=== PATIENT | female | born 1945 | race African-American/Black ===

== ENCOUNTER 2017-03-21 03:54 | Emergency (ER) | payer MEDICARE, BC ==
[~2017-03-21] VITALS: Ht 167.6 cm; Wt 79.4 kg
[~2017-03-21 03:54] MED LIST: ASPI-785; ATOR40TA70; BISACODYL; CARV12.545; COMP25R; CYAN100010; DOCU100T PO; DOCUSATE; ESOM20CA; ESTR1TAB12; GABA-290; INSLAN; INSU3INS8; MAGNESIUM; METF25CR; ONDA4FIL4; SENN8.6T71; TRIAMTERENE; [UNRECOGNIZED DRUG - CODE]
[2017-03-21] MEDS ORDERED: ONDANSETRON HCL 4MG/2ML VIAL IV STA (04:24)
[2017-03-21] MEDS ORDERED: MORPHINE SULFATE 4 MG/ML CPJ (NOT FOR IM USE) IV STA (04:24)
[2017-03-21] MEDS ORDERED: SODIUM CHLORIDE 0.9% 1,000 ML IV ONE (04:24)
[2017-03-21 05:04] LABS: BASOPHILS % 1.3 % (0.0-2.0); HEMATOCRIT. 33.4 % (36.0-48.0); HEMOGLOBIN. 10.8 g/dL (12.0-16.0); LYMPHOCYTES % 22.5 % (20.0-50.0); MEAN CORPUSCULAR HEMOGLOBIN 27.9 pg (28.0-32.0); MEAN CORPUSCULAR HGB CONC 32.3 g/dL (31.0-37.0); MEAN CORPUSCULAR VOLUME 86.3 fL (81.0-99.0); MEAN PLATELET VOLUME 8.4 fl (7.4-10.4); MONOCYTES % 13.5 % (2.0-8.0); NEUTROPHILS % 61.7 % (40.0-76.0); PLATELET 238 x1000/uL (130-400); RED BLOOD CELL COUNT 3.87 mill/uL (4.2-5.4); RED CELL DISTRIBUTION WIDTH 19.6 % (11.6-14.6); WHITE BLOOD COUNT 8.1 x1000/uL (4.5-11.0)
[2017-03-21 05:14] LABS: INR 1.1; PARTIAL THROMBOPLASTIN TIME 25.7 sec (24.0-34.0); PROTHROMBIN TIME 11.5 sec
[2017-03-21 05:19] LABS: ALANINE AMINOTRANSFERASE 38 IU/L (13-61); ALBUMIN 3.3 g/dL (3.4-5.0); ANION GAP 15; CARBON DIOXIDE 26 mEq/L (21-32); CHLORIDE 98 mEq/L (98-107); INDEX HEMOLYSI 1 (1-3); INDEX ICTERIC 1 (1-4); INDEX LIPEMIC 1 (1-3); LIPASE 247 IU/L (73-393); UREA NITROGEN BLOOD 7 mg/dL (7-21); eGFR > 60 mL/min (>60)
[2017-03-21] MEDS ORDERED: MORPHINE SULFATE 4 MG/ML CPJ (NOT FOR IM USE) IV ONE (06:30)
[2017-03-21 06:41] LABS: CLARITY URINE CLEAR (CLEAR); COLOR URINE YELLOW (YELLOW); GLUCOSE URINE NEGATIVE (NEGATIVE); KETONES URINE NEGATIVE (NEGATIVE); LEUKOCYTE ESTERASE URINE NEGATIVE (NEGATIVE); NITRITE URINE NEGATIVE (NEGATIVE); OCCULT BLOOD URINE NEGATIVE (NEGATIVE); PROTEIN URINE NEGATIVE (NEGATIVE); SPECIFIC GRAVITY URINE 1.011 (1.005-1.030); UROBILINOGEN URINE 0.2 E.U./dL (0.2-1.0)
[2017-03-21 08:35] VITALS: BP 128/81
== END 2017-03-21 08:43 | disposition home or self-care (01) ==
LOC: ER 04:37
DX: R10.11 Right upper quadrant pain (principal); C25.9 Malignant neoplasm of pancreas, unspecified; K76.89 Other specified diseases of liver; K44.9 Diaphragmatic hernia without obstruction or gangrene; N28.1 Cyst of kidney, acquired; K43.9 Ventral hernia without obstruction or gangrene; I70.0 Atherosclerosis of aorta; M43.16 Spondylolisthesis, lumbar region; Z90.710 Acquired absence of both cervix and uterus; I10 Essential (primary) hypertension; E11.9 Type 2 diabetes mellitus without complications; Z88.0 Allergy status to penicillin; Z79.899 Other long term (current) drug therapy
CPT/HCPCS: 36415; 74177; 80053; 81003; 83690; 85025; 85610; 85730; 86850; 86900; 86901; 96361; 96374; 96375; 96376; 99285; J2270; J2405; J7030

== ENCOUNTER 2017-04-10 11:52 | Emergency (ER) | payer MEDICARE, BC ==
[~2017-04-10] VITALS: Ht 162.6 cm; Wt 91.0 kg
[2017-04-10 14:04] LABS: BASOPHILS % 0.6 % (0.0-2.0); DIFFERENTIAL COMMENT 0; EOSINOPHILS % 0.1 % (0.0-5.0); HEMATOCRIT. 34.6 % (36.0-48.0); HEMOGLOBIN. 11.1 g/dL (12.0-16.0); LYMPHOCYTES % 17.2 % (20.0-50.0); MEAN CORPUSCULAR HEMOGLOBIN 26.2 pg (28.0-32.0); MEAN CORPUSCULAR VOLUME 81.9 fL (81.0-99.0); MEAN PLATELET VOLUME 8.9 fl (7.4-10.4); MONOCYTES % 2.5 % (2.0-8.0); NEUTROPHILS % 79.6 % (40.0-76.0); PLATELET 263 x1000/uL (130-400); RED BLOOD CELL COUNT 4.22 mill/uL (4.2-5.4); RED CELL DISTRIBUTION WIDTH 19.1 % (11.6-14.6); WHITE BLOOD COUNT 6.6 x1000/uL (4.5-11.0)
[2017-04-10 14:12] LABS: INR 1.2; PROTHROMBIN TIME 12.4 sec
[2017-04-10 14:15] LABS: ALBUMIN 3.2 g/dL (3.4-5.0); ANION GAP 15; CALCIUM 8.8 mg/dL (8.5-10.1); CARBON DIOXIDE 27 mEq/L (21-32); CHLORIDE 95 mEq/L (98-107); INDEX HEMOLYSI 1 (1-3); INDEX ICTERIC 1 (1-4); INDEX LIPEMIC 1 (1-3); UREA NITROGEN BLOOD 8 mg/dL (7-21)
[2017-04-10 14:22] LABS: ALANINE AMINOTRANSFERASE 194 IU/L (13-61); TROPONIN I < 0.02 ng/mL (0.00-0.04); eGFR > 60 mL/min (>60)
[2017-04-10 16:31] LABS: CLARITY URINE CLEAR (CLEAR); COLOR URINE YELLOW (YELLOW); GLUCOSE URINE NEGATIVE (NEGATIVE); KETONES URINE NEGATIVE (NEGATIVE); LEUKOCYTE ESTERASE URINE NEGATIVE (NEGATIVE); NITRITE URINE NEGATIVE (NEGATIVE); OCCULT BLOOD URINE NEGATIVE (NEGATIVE); PH URINE 8.5 (4.5-8.0); PROTEIN URINE NEGATIVE (NEGATIVE); SPECIFIC GRAVITY URINE 1.006 (1.005-1.030); UROBILINOGEN URINE 0.2 E.U./dL (0.2-1.0)
[2017-04-10] MEDS: LORAZEPAM 1MG TABLET PO NR ×2 (17:00→19:15)
[2017-04-10] MEDS: POTASSIUM CHLORIDE 10MEQ TABLET SR PO SCH ×2 (18:00→18:13)
[2017-04-10 19:16] VITALS: BP 140/78
== END 2017-04-10 19:21 | disposition home or self-care (01) ==
LOC: ER 13:58
DX: E87.6 Hypokalemia (principal); K74.60 Unspecified cirrhosis of liver; C25.9 Malignant neoplasm of pancreas, unspecified; E11.9 Type 2 diabetes mellitus without complications; Z88.0 Allergy status to penicillin; Z88.8 Allergy status to other drugs, medicaments and biological substances; Z79.899 Other long term (current) drug therapy; Z90.410 Acquired total absence of pancreas; I10 Essential (primary) hypertension
CPT/HCPCS: 36415; 71010; 80053; 81003; 84484; 85025; 85610; 87804; 93005; 99285; J1642

== ENCOUNTER 2017-04-23 01:43 | Emergency (ER) | payer MEDICARE, BC ==
[~2017-04-23] VITALS: Ht 162.6 cm; Wt 90.0 kg
[2017-04-23] MEDS ORDERED: ONDANSETRON HCL 4MG/2ML VIAL IV STA (02:46)
[2017-04-23] MEDS ORDERED: SODIUM CHLORIDE 0.9% 1,000 ML IV ONE (02:46)
[2017-04-23] MEDS ORDERED: MORPHINE SULFATE 4 MG/ML CPJ (NOT FOR IM USE) IV STA (02:46)
[2017-04-23 03:42] LABS: HEMATOCRIT. 29.5 % (36.0-48.0); HEMOGLOBIN. 9.5 g/dL (12.0-16.0); MEAN CORPUSCULAR HEMOGLOBIN 25.5 pg (28.0-32.0); MEAN CORPUSCULAR VOLUME 79.5 fL (81.0-99.0); MEAN PLATELET VOLUME 10.2 fl (7.4-10.4); PLATELET 112 x1000/uL (130-400); RED BLOOD CELL COUNT 3.71 mill/uL (4.2-5.4); RED CELL DISTRIBUTION WIDTH 19.7 % (11.6-14.6)
[2017-04-23 03:56] LABS: CARBON DIOXIDE 29 mEq/L (21-32); CHLORIDE 97 mEq/L (98-107); TROPONIN I < 0.02 ng/mL (0.00-0.04)
[2017-04-23 04:02] LABS: INR 1.1; PROTHROMBIN TIME 11.2 sec
[2017-04-23 05:11] LABS: NUCLEATED RED BLOOD CELLS 2 /100 WBC
[2017-04-23 05:14] LABS: PLATELET ESTIMATE SLIGHTLY DECREASED
[2017-04-23 08:37] VITALS: BP 132/85
== END 2017-04-23 08:47 | disposition home or self-care (01) ==
LOC: ER 01:44
DX: R53.1 Weakness (principal); C25.9 Malignant neoplasm of pancreas, unspecified; G89.3 Neoplasm related pain (acute) (chronic); Z88.8 Allergy status to other drugs, medicaments and biological substances; Z92.21 Personal history of antineoplastic chemotherapy; Z88.0 Allergy status to penicillin
CPT/HCPCS: 36415; 70450; 71010; 80053; 84484; 85025; 85610; 86850; 86900; 86901; 93005; 96374; 96375; 99285; J2270; J2405; J7030

== ENCOUNTER 2017-07-13 14:53 | Inpatient (IN) | payer MEDICARE, BC ==
[~2017-07-13] VITALS: Ht 162.6 cm; Wt 83.0 kg
[~2017-07-13 14:53] MED LIST changes: -ASPI-785; +ASPI-785 PO; -CARV12.545; +CARV12.545 PO; -CYAN100010; +CYAN100010 IM; -GABA-290; +GABA-290 PO; +IOHEXOL-300 100 ML BOTTLE ONE; +SODIUM CHLORIDE 0.9% 10ML VIAL ONE
[2017-07-13] MEDS ORDERED: SODIUM CHLORIDE 0.9% 1,000 ML IV ONE (16:30)
[2017-07-13] MEDS ORDERED: MORPHINE SULFATE 4 MG/ML CPJ (NOT FOR IM USE) IV ONE (16:30)
[2017-07-13] MEDS ORDERED: ONDANSETRON HCL 4MG/2ML VIAL IV ONE (16:30)
[2017-07-13 17:01] LABS: BASOPHILS % 1.2 % (0.0-2.0); EOSINOPHILS % 0.6 % (0.0-5.0); HEMATOCRIT. 29.4 % (36.0-48.0); HEMOGLOBIN. 9.3 g/dL (12.0-16.0); MEAN CORPUSCULAR HEMOGLOBIN 24.4 pg (28.0-32.0); MEAN CORPUSCULAR VOLUME 77.8 fL (81.0-99.0); MEAN PLATELET VOLUME 8.5 fl (7.4-10.4); MONOCYTES % 1.9 % (2.0-8.0); NEUTROPHILS % 48.3 % (40.0-76.0); PLATELET 313 x1000/uL (130-400); RED BLOOD CELL COUNT 3.79 mill/uL (4.2-5.4)
[2017-07-13 17:06] LABS: CHLORIDE 103 mEq/L (98-107)
[2017-07-13 17:09] LABS: INR 1.2; PARTIAL THROMBOPLASTIN TIME 25.9 sec (23.4-31.0); PROTHROMBIN TIME 12.2 sec (9.4-11.6)
[2017-07-13 17:10] LABS: CARBON DIOXIDE 25 mEq/L (21-32)
[2017-07-13 17:21] LABS: PLATELET ESTIMATE NORMAL
[2017-07-13 18:24] LABS: CLARITY URINE CLEAR (CLEAR); COLOR URINE YELLOW (YELLOW); KETONES URINE NEGATIVE (NEGATIVE); LEUKOCYTE ESTERASE URINE TRACE (NEGATIVE); NITRITE URINE NEGATIVE (NEGATIVE); OCCULT BLOOD URINE NEGATIVE (NEGATIVE); PH URINE 7.5 (4.5-8.0); PROTEIN URINE NEGATIVE (NEGATIVE); SPECIFIC GRAVITY URINE 1.008 (1.005-1.030)
[2017-07-13] MEDS: MORPHINE SULFATE 4 MG/ML CPJ (NOT FOR IM USE) IV NR ×2 (21:19→21:29)
[2017-07-14] MEDS ORDERED: MORPHINE SULFATE 4 MG/ML CPJ (NOT FOR IM USE) IV ONE (03:45)
[2017-07-14] MEDS ORDERED: DEXTROSE 50% WATER 50ML SYRINGE IV PRN (09:45)
[2017-07-14] MEDS: HYDROMORPHONE HCL/PF 2MG/ML CPJ IV PRN ×2 (10:40→16:00)
[2017-07-14] MEDS: DIPHENHYDRAMINE 50MG/ML VIAL IV PRN ×2 (12:11→18:19)
[2017-07-14] MEDS: BLOOD SUGAR DIAGNOSTIC STRIP TEST SCH ×3 (12:49→20:38)
[2017-07-14] MEDS: INSULIN LISPRO 100 UNITS/ML SUBCUT SCH ×3 (12:49→21:44)
[2017-07-14] MEDS ORDERED: AMYL1CAP57 PO (19:24)
[2017-07-14] MEDS: GABAPENTIN 300MG CAPSULE PO SCH (22:17)
[2017-07-15 06:42] LABS: EOSINOPHILS % 2.3 % (0.0-5.0); HEMATOCRIT. 28.4 % (36.0-48.0); LYMPHOCYTES % 22.7 % (20.0-50.0); MEAN CORPUSCULAR HEMOGLOBIN 24.6 pg (28.0-32.0); MEAN CORPUSCULAR VOLUME 77.6 fL (81.0-99.0); MEAN PLATELET VOLUME 8.7 fl (7.4-10.4); PLATELET 337 x1000/uL (130-400); RED BLOOD CELL COUNT 3.66 mill/uL (4.2-5.4); RED CELL DISTRIBUTION WIDTH 22.8 % (11.6-14.6)
[2017-07-15] MEDS: GABAPENTIN 300MG CAPSULE PO SCH ×3 (06:51→21:04)
[2017-07-15] MEDS: OMEPRAZOLE 20MG CAPSULE EXTENDED RELEASE PO SCH (07:40)
[2017-07-15] MEDS: METFORMIN HCL 500MG TABLET PO SCH ×2 (07:40→17:36)
[2017-07-15] MEDS: INSULIN LISPRO 100 UNITS/ML SUBCUT SCH ×4 (07:40→20:58)
[2017-07-15] MEDS: BLOOD SUGAR DIAGNOSTIC STRIP TEST SCH ×4 (07:40→20:48)
[2017-07-15 08:16] LABS: AMYLASE 31 IU/L (25-115); CARBON DIOXIDE 26 mEq/L (21-32); CHLORIDE 101 mEq/L (98-107)
[2017-07-15] MEDS: LIPASE/PROTEASE/AMYLASE 4,200/14,200/24,600 UNITS CAP DR PO SCH ×3 (08:27→17:37)
[2017-07-15] MEDS: DOCUSATE SODIUM 100MG CAPSULE PO SCH ×2 (08:27→17:37)
[2017-07-15] MEDS: CARVEDILOL 12.5MG TABLET PO SCH ×2 (08:27→17:37)
[2017-07-15] MEDS: SENNOSIDES 8.6MG TABLET PO SCH (08:27)
[2017-07-15] MEDS ORDERED: CARVEDILOL 12.5MG TABLET PO SCH (09:00)
[2017-07-15] MEDS ORDERED: ESTROGENS,CONJUGATED 0.625MG TABLET PO SCH (09:00)
[2017-07-15] MEDS: INSULIN DETEMIR UD 100 UNITS/ML SYR SUBCUT SCH (10:34)
[2017-07-15] MEDS: HYDROMORPHONE HCL/PF 2MG/ML CPJ IV PRN (11:26)
[2017-07-15 11:58] LABS: HEMATOCRIT. 27.7 % (36.0-48.0); HEMOGLOBIN. 8.6 g/dL (12.0-16.0); MEAN CORPUSCULAR HEMOGLOBIN 24.7 pg (28.0-32.0); MEAN CORPUSCULAR VOLUME 79.3 fL (81.0-99.0); MEAN PLATELET VOLUME 8.8 fl (7.4-10.4); PLATELET 309 x1000/uL (130-400); RED CELL DISTRIBUTION WIDTH 23.2 % (11.6-14.6)
[2017-07-15 12:06] LABS: CHLORIDE 106 mEq/L (98-107)
[2017-07-15 12:07] LABS: INR 1.4; PARTIAL THROMBOPLASTIN TIME 30.2 sec (23.4-31.0); PROTHROMBIN TIME 14.9 sec (9.4-11.6)
[2017-07-15 12:15] LABS: CARBON DIOXIDE 22 mEq/L (21-32)
[2017-07-15 12:33] LABS: PLATELET ESTIMATE NORMAL
[2017-07-15] MEDS: ENOXAPARIN 40MG/0.4ML SYR SUBCUT SCH (13:00)
[2017-07-15 14:33] LABS: CREATINE KINASE 28 IU/L (26-192); CREATINE KINASE MB FRACTION < 0.5 ng/mL (0.5-3.6); TROPONIN I < 0.02 ng/mL (0.00-0.04)
[2017-07-15] MEDS: SODIUM CHLORIDE 0.45% 1,000 ML IV SCH (14:59)
[2017-07-15] MEDS: TRAMADOL 50MG TABLET PO PRN (19:47)
[2017-07-15] MEDS: ATORVASTATIN CALCIUM 40MG TABLET PO SCH (20:55)
[2017-07-15] MEDS ORDERED: TRAZODONE HCL 50MG TABLET PO SCH (21:00)
[2017-07-15 21:52] LABS: CREATINE KINASE 27 IU/L (26-192); CREATINE KINASE MB FRACTION < 0.5 ng/mL (0.5-3.6); TROPONIN I < 0.02 ng/mL (0.00-0.04)
[2017-07-16 06:11] LABS: CREATINE KINASE 26 IU/L (26-192); CREATINE KINASE MB FRACTION < 0.5 ng/mL (0.5-3.6); TROPONIN I < 0.02 ng/mL (0.00-0.04)
[2017-07-16] MEDS: LIPASE/PROTEASE/AMYLASE 4,200/14,200/24,600 UNITS CAP DR PO SCH ×3 (06:27→16:41)
[2017-07-16] MEDS: OMEPRAZOLE 20MG CAPSULE EXTENDED RELEASE PO SCH (06:28)
[2017-07-16] MEDS: GABAPENTIN 300MG CAPSULE PO SCH ×3 (06:28→21:06)
[2017-07-16] MEDS: INSULIN LISPRO 100 UNITS/ML SUBCUT SCH ×4 (06:33→21:09)
[2017-07-16] MEDS: BLOOD SUGAR DIAGNOSTIC STRIP TEST SCH ×4 (06:34→20:30)
[2017-07-16] MEDS ORDERED: ACETAMINOPHEN 325MG TABLET PO PRN (07:45)
[2017-07-16] MEDS: DOCUSATE SODIUM 100MG CAPSULE PO SCH ×2 (08:13→16:41)
[2017-07-16] MEDS: METFORMIN HCL 500MG TABLET PO SCH ×2 (08:13→16:41)
[2017-07-16] MEDS: CARVEDILOL 12.5MG TABLET PO SCH ×2 (08:14→16:41)
[2017-07-16] MEDS: SENNOSIDES 8.6MG TABLET PO SCH (08:14)
[2017-07-16] MEDS: SODIUM CHLORIDE 0.45% 1,000 ML IV SCH (08:14)
[2017-07-16] MEDS: ENOXAPARIN 40MG/0.4ML SYR SUBCUT SCH (08:14)
[2017-07-16] MEDS: INSULIN DETEMIR UD 100 UNITS/ML SYR SUBCUT SCH (09:16)
[2017-07-16 09:18] LABS: CARBON DIOXIDE 23 mEq/L (21-32); CHLORIDE 104 mEq/L (98-107)
[2017-07-16 11:26] LABS: HEMATOCRIT. 27.4 % (36.0-48.0); HEMOGLOBIN. 8.5 g/dL (12.0-16.0); MEAN CORPUSCULAR HEMOGLOBIN 24.8 pg (28.0-32.0); MEAN CORPUSCULAR VOLUME 79.7 fL (81.0-99.0); MEAN PLATELET VOLUME 8.8 fl (7.4-10.4); PLATELET 331 x1000/uL (130-400); RED BLOOD CELL COUNT 3.44 mill/uL (4.2-5.4); RED CELL DISTRIBUTION WIDTH 22.5 % (11.6-14.6)
[2017-07-16 11:58] LABS: PLATELET ESTIMATE NORMAL
[2017-07-16] MEDS: ONDANSETRON HCL 4MG/2ML VIAL IV PRN (13:50)
[2017-07-16] MEDS: SODIUM CHLORIDE 45ML SPRAY NS PRN ×2 (17:27→23:08)
[2017-07-16] MEDS: ATORVASTATIN CALCIUM 40MG TABLET PO SCH (21:06)
[2017-07-16] MEDS ORDERED: TRAZODONE HCL 50MG TABLET PO SCH ×3 (21:37→23:00)
[2017-07-16] MEDS: TRAMADOL 50MG TABLET PO PRN (21:41)
[2017-07-17] MEDS: HYDROMORPHONE HCL/PF 2MG/ML CPJ IV PRN (00:19)
[2017-07-17] MEDS: SODIUM CHLORIDE 0.45% 1,000 ML IV SCH (03:42)
[2017-07-17] MEDS: DIPHENHYDRAMINE 50MG/ML VIAL IV PRN (03:47)
[2017-07-17] MEDS: SODIUM CHLORIDE 45ML SPRAY NS PRN ×2 (03:53→14:44)
[2017-07-17] MEDS: GABAPENTIN 300MG CAPSULE PO SCH ×2 (06:00→14:42)
[2017-07-17] MEDS: LIPASE/PROTEASE/AMYLASE 4,200/14,200/24,600 UNITS CAP DR PO SCH ×3 (06:38→17:15)
[2017-07-17] MEDS: BLOOD SUGAR DIAGNOSTIC STRIP TEST SCH ×3 (06:38→17:14)
[2017-07-17] MEDS: METFORMIN HCL 500MG TABLET PO SCH ×2 (06:57→17:15)
[2017-07-17] MEDS: INSULIN LISPRO 100 UNITS/ML SUBCUT SCH ×3 (07:02→18:04)
[2017-07-17 07:19] LABS: HEMATOCRIT. 27.1 % (36.0-48.0); HEMOGLOBIN. 8.5 g/dL (12.0-16.0); MEAN CORPUSCULAR VOLUME 79.2 fL (81.0-99.0); MEAN PLATELET VOLUME 8.4 fl (7.4-10.4); PLATELET 323 x1000/uL (130-400); RED BLOOD CELL COUNT 3.41 mill/uL (4.2-5.4)
[2017-07-17 07:42] LABS: CARBON DIOXIDE 26 mEq/L (21-32); CHLORIDE 103 mEq/L (98-107)
[2017-07-17] MEDS: CARVEDILOL 12.5MG TABLET PO SCH ×2 (09:00→17:15)
[2017-07-17] MEDS ORDERED: ENOXAPARIN 30MG/0.3ML SYR SUBCUT SCH (09:00)
[2017-07-17] MEDS: FAMOTIDINE 20MG TABLET PO SCH ×2 (09:00→17:15)
[2017-07-17] MEDS: DOCUSATE SODIUM 100MG CAPSULE PO SCH ×2 (09:00→17:15)
[2017-07-17] MEDS: ONDANSETRON HCL 4MG/2ML VIAL IV PRN (12:15)
[2017-07-17] MEDS: INSULIN DETEMIR UD 100 UNITS/ML SYR SUBCUT SCH (12:16)
[2017-07-17] MEDS: SENNOSIDES 8.6MG TABLET PO SCH (12:26)
[2017-07-17 13:18] LABS: PLATELET ESTIMATE NORMAL
[2017-07-17 19:22] VITALS: BP 127/53
[2017-07-17] MEDS ORDERED: TRAZODONE HCL 50MG TABLET PO SCH (23:00)
[2018-07-30] MEDS ORDERED: CYANOCOBALAMIN 1000MCG/ML VIAL IM SCH (09:00)
== END 2017-07-17 19:55 | disposition home or self-care (01) | DRG 436 ==
LOC: ER 16:11 → 8WST 22:51 → ENRESERV 07-14 06:52
PROVIDERS: ADMIT Internal Medicine; ATTEND Internal Medicine
DX: C78.7 Secondary malignant neoplasm of liver and intrahepatic bile duct (principal); E44.0 Moderate protein-calorie malnutrition; C25.9 Malignant neoplasm of pancreas, unspecified; C77.9 Secondary and unspecified malignant neoplasm of lymph node, unspecified; E11.42 Type 2 diabetes mellitus with diabetic polyneuropathy; D64.9 Anemia, unspecified; I10 Essential (primary) hypertension; E78.5 Hyperlipidemia, unspecified; G89.3 Neoplasm related pain (acute) (chronic); G89.29 Other chronic pain; G43.909 Migraine, unspecified, not intractable, without status migrainosus; K80.50 Calculus of bile duct without cholangitis or cholecystitis without obstruction; M19.90 Unspecified osteoarthritis, unspecified site; Z90.710 Acquired absence of both cervix and uterus; Z79.899 Other long term (current) drug therapy; Z92.21 Personal history of antineoplastic chemotherapy; Z90.81 Acquired absence of spleen
CPT/HCPCS: 36415; 70450; 71010; 74177; 74181; 80048; 80053; 80076; 81001; 82150; 82550; 82553; 82962; 83690; 84484; 85025; 85610; 85651; 85730; 93005; 93306; 96361; 96374; 96375; 96376; 99285; A4216; J1170; J1200; J1650; J1815; J2270; J2405; J7030; Q9967

== ENCOUNTER 2017-07-27 16:58 | Inpatient (IN) | payer MEDICARE, BC ==
[~2017-07-27] VITALS: Ht 162.6 cm; Wt 80.7 kg
[~2017-07-27 16:58] MED LIST changes: +AMYL1CAP57 PO; -IOHEXOL-300 100 ML BOTTLE ONE; -SODIUM CHLORIDE 0.9% 10ML VIAL ONE
[2017-07-27] MEDS ORDERED: SODIUM CHLORIDE 0.9% 1,000 ML IV ONE (17:52)
[2017-07-27] MEDS ORDERED: MORPHINE SULFATE 4 MG/ML CPJ (NOT FOR IM USE) IV STA (17:52)
[2017-07-27] MEDS ORDERED: ONDANSETRON HCL 4MG/2ML VIAL IV STA (17:52)
[2017-07-27 18:20] LABS: HEMATOCRIT. 28.8 % (36.0-48.0); HEMOGLOBIN. 9.3 g/dL (12.0-16.0); MEAN CORPUSCULAR HEMOGLOBIN 25.1 pg (28.0-32.0); MEAN PLATELET VOLUME 8.9 fl (7.4-10.4); PLATELET 238 x1000/uL (130-400); RED BLOOD CELL COUNT 3.69 mill/uL (4.2-5.4); RED CELL DISTRIBUTION WIDTH 22.6 % (11.6-14.6)
[2017-07-27 18:27] LABS: INR 1.2; PARTIAL THROMBOPLASTIN TIME 30.3 sec (23.4-31.0); PROTHROMBIN TIME 12.3 sec (9.4-11.6)
[2017-07-27 18:30] LABS: CARBON DIOXIDE 24 mEq/L (21-32); CHLORIDE 105 mEq/L (98-107)
[2017-07-27 18:33] LABS: TROPONIN I < 0.02 ng/mL (0.00-0.04)
[2017-07-27 18:41] LABS: PLATELET ESTIMATE NORMAL
[2017-07-27] MEDS ORDERED: HYDROMORPHONE HCL/PF 2MG/ML CPJ IV ONE (19:45)
[2017-07-27 20:32] LABS: CLARITY URINE CLEAR (CLEAR); COLOR URINE DARK YELLOW (YELLOW); GLUCOSE URINE NEGATIVE (NEGATIVE); KETONES URINE NEGATIVE (NEGATIVE); LEUKOCYTE ESTERASE URINE TRACE (NEGATIVE); NITRITE URINE NEGATIVE (NEGATIVE); OCCULT BLOOD URINE NEGATIVE (NEGATIVE); PH URINE 7.5 (4.5-8.0); PROTEIN URINE NEGATIVE (NEGATIVE); SPECIFIC GRAVITY URINE 1.007 (1.005-1.030)
[2017-07-27 23:00] VITALS: BP 139/73
[2017-07-28] MEDS ORDERED: CHOL100044 PO (00:14)
[2017-07-28] MEDS ORDERED: METF-517 PO (00:14)
[2017-07-28] MEDS ORDERED: FOLI-43 PO (00:14)
[2017-07-28] MEDS ORDERED: TRAZ-132 PO (00:14)
[2017-07-28] MEDS ORDERED: DEXTROSE 50% WATER 50ML SYRINGE IV PRN (02:00)
[2017-07-28] MEDS: HYDROMORPHONE HCL/PF 2MG/ML CPJ IV PRN ×4 (02:50→21:33)
[2017-07-28] MEDS: DIPHENHYDRAMINE 50MG/ML VIAL IV PRN ×2 (02:50→19:50)
[2017-07-28 04:00] VITALS: BP 148/82
[2017-07-28] MEDS: BLOOD SUGAR DIAGNOSTIC STRIP TEST SCH ×4 (06:36→21:32)
[2017-07-28 07:44] VITALS: BP 149/86
[2017-07-28] MEDS: INSULIN LISPRO 100 UNITS/ML SUBCUT SCH ×4 (07:50→21:31)
[2017-07-28] MEDS: DOCUSATE SODIUM 100MG CAPSULE PO SCH ×2 (08:58→18:13)
[2017-07-28] MEDS: GABAPENTIN 300MG CAPSULE PO SCH (08:59)
[2017-07-28] MEDS: METFORMIN HCL 500MG SR TABLET 24HR PO SCH ×2 (08:59→18:13)
[2017-07-28] MEDS: FOLIC ACID 1MG TABLET PO SCH (08:59)
[2017-07-28] MEDS ORDERED: CYANOCOBALAMIN 1000MCG/ML VIAL IM SCH (09:00)
[2017-07-28] MEDS: CHOLECALCIFEROL (D3) 1000 UNIT TABLET PO SCH (09:00)
[2017-07-28] MEDS ORDERED: MEDICATION NOT ON FORMULARY EA (Docusate Sodium 100 MG) PO SCH (09:00)
[2017-07-28] MEDS ORDERED: MEDICATION NOT ON FORMULARY EA (Gabapentin 600 MG) PO SCH (09:00)
[2017-07-28] MEDS: CARVEDILOL 12.5MG TABLET PO SCH (09:00)
[2017-07-28] MEDS: ONDANSETRON HCL 4MG/2ML VIAL IV PRN ×2 (09:40→18:17)
[2017-07-28 10:15] LABS: HEMOGLOBIN 9.6 g/dL (12.0-16.0); MEAN CORPUSCULAR HEMOGLOBIN 25.3 pg (28.0-32.0); MEAN CORPUSCULAR VOLUME 78.5 fL (81.0-99.0); PLATELET 247 x1000/uL (130-400); RED BLOOD CELL COUNT 3.82 mill/uL (4.2-5.4); RED CELL DISTRIBUTION WIDTH 22.6 % (11.6-14.6)
[2017-07-28 10:22] LABS: INR 1.2; PARTIAL THROMBOPLASTIN TIME 26.8 sec (23.4-31.0); PROTHROMBIN TIME 12.5 sec (9.4-11.6)
[2017-07-28 10:32] LABS: CARBON DIOXIDE 24 mEq/L (21-32); CHLORIDE 102 mEq/L (98-107)
[2017-07-28 12:00] VITALS: BP 114/57
[2017-07-28 16:00] VITALS: BP 120/58
[2017-07-28 20:00] VITALS: BP 150/74
[2017-07-28] MEDS: TRAZODONE HCL 100MG TABLET PO SCH (21:31)
[2017-07-29] VITALS: BP 136/77
[2017-07-29] MEDS: HYDROMORPHONE HCL/PF 2MG/ML CPJ IV PRN ×4 (00:43→15:25)
[2017-07-29 04:00] VITALS: BP 123/66
[2017-07-29] MEDS: BLOOD SUGAR DIAGNOSTIC STRIP TEST SCH ×4 (07:20→20:49)
[2017-07-29] MEDS: METFORMIN HCL 500MG SR TABLET 24HR PO SCH ×2 (07:50→17:14)
[2017-07-29] MEDS: INSULIN LISPRO 100 UNITS/ML SUBCUT SCH ×4 (07:50→20:50)
[2017-07-29 08:00] VITALS: BP 122/64
[2017-07-29] MEDS: CARVEDILOL 12.5MG TABLET PO SCH (09:00)
[2017-07-29] MEDS: FOLIC ACID 1MG TABLET PO SCH (09:00)
[2017-07-29] MEDS: GABAPENTIN 300MG CAPSULE PO SCH (09:00)
[2017-07-29] MEDS: DOCUSATE SODIUM 100MG CAPSULE PO SCH ×2 (09:00→17:14)
[2017-07-29] MEDS: CHOLECALCIFEROL (D3) 1000 UNIT TABLET PO SCH (09:00)
[2017-07-29] MEDS: DIPHENHYDRAMINE 50MG/ML VIAL IV PRN (11:10)
[2017-07-29 12:00] VITALS: BP 167/77
[2017-07-29 16:00] VITALS: BP 140/74
[2017-07-29] MEDS: ONDANSETRON HCL 4MG/2ML VIAL IV PRN (18:08)
[2017-07-29] MEDS: MAGNESIUM/ALUMINUM HYDROXIDE/SIMETHICONE 30ML UDC PO PRN (18:30)
[2017-07-29] MEDS: OMEPRAZOLE 20MG CAPSULE EXTENDED RELEASE PO SCH (18:30)
[2017-07-29 20:45] VITALS: BP 140/90
[2017-07-29] MEDS: TRAZODONE HCL 100MG TABLET PO SCH (20:49)
[2017-07-30] MEDS: HYDROMORPHONE HCL/PF 2MG/ML CPJ IV PRN ×4 (00:02→21:24)
[2017-07-30 00:23] VITALS: BP 121/66
[2017-07-30 04:34] VITALS: BP 129/74
[2017-07-30] MEDS: BLOOD SUGAR DIAGNOSTIC STRIP TEST SCH ×4 (06:31→20:31)
[2017-07-30 08:00] VITALS: BP 105/63
[2017-07-30] MEDS: CHOLECALCIFEROL (D3) 1000 UNIT TABLET PO SCH (08:15)
[2017-07-30] MEDS: GABAPENTIN 300MG CAPSULE PO SCH (08:15)
[2017-07-30] MEDS: OMEPRAZOLE 20MG CAPSULE EXTENDED RELEASE PO SCH (08:15)
[2017-07-30] MEDS: METFORMIN HCL 500MG SR TABLET 24HR PO SCH ×2 (08:15→17:21)
[2017-07-30] MEDS: DOCUSATE SODIUM 100MG CAPSULE PO SCH ×2 (08:15→17:21)
[2017-07-30] MEDS: INSULIN LISPRO 100 UNITS/ML SUBCUT SCH ×4 (08:17→20:31)
[2017-07-30] MEDS: FOLIC ACID 1MG TABLET PO SCH (08:18)
[2017-07-30] MEDS: CARVEDILOL 12.5MG TABLET PO SCH (08:19)
[2017-07-30 09:09] LABS: HEMATOCRIT. 29.3 % (36.0-48.0); HEMOGLOBIN. 9.3 g/dL (12.0-16.0); MEAN CORPUSCULAR HEMOGLOBIN 25.1 pg (28.0-32.0); MEAN CORPUSCULAR VOLUME 78.9 fL (81.0-99.0); PLATELET 275 x1000/uL (130-400); RED BLOOD CELL COUNT 3.71 mill/uL (4.2-5.4); RED CELL DISTRIBUTION WIDTH 22.5 % (11.6-14.6)
[2017-07-30 09:20] LABS: AMYLASE 27 IU/L (25-115); CARBON DIOXIDE 25 mEq/L (21-32); CHLORIDE 103 mEq/L (98-107); TOTAL IRON BINDING CAPACITY 214 ug/dL (250-450)
[2017-07-30 09:57] LABS: INR 1.2; PARTIAL THROMBOPLASTIN TIME 27.3 sec (23.4-31.0); PROTHROMBIN TIME 12.1 sec (9.4-11.6)
[2017-07-30] MEDS ORDERED: SODIUM CHL 0.9% + KCL 20MEQ/L 1,000 ML IV SCH (10:00)
[2017-07-30] MEDS: LEVOFLOXACIN 500MG PREMIX 100 ML IV SCH (11:14)
[2017-07-30 11:22] LABS: FOLIC ACID (FOLATE) SERUM > 20.00 ng/mL (>5.38); VITAMIN B12 SERUM > 2000 pg/mL (211-911)
[2017-07-30 12:08] VITALS: BP 125/64
[2017-07-30] MEDS: ONDANSETRON HCL 4MG/2ML VIAL IV PRN ×2 (13:04→19:32)
[2017-07-30 13:49] LABS: FERRITIN 282 ng/mL (10-291)
[2017-07-30 13:50] LABS: CARCINO EMBRYONIC ANTIGEN 8.8 ng/ml
[2017-07-30] MEDS: MAGNESIUM/ALUMINUM HYDROXIDE/SIMETHICONE 30ML UDC PO PRN (13:58)
[2017-07-30 16:01] VITALS: BP 111/68
[2017-07-30 20:14] VITALS: BP 117/57
[2017-07-30] MEDS: TRAZODONE HCL 100MG TABLET PO SCH (20:31)
[2017-07-30 23:33] LABS: NUCLEATED RED BLOOD CELLS 2 /100 WBC
[2017-07-30 23:37] LABS: PLATELET ESTIMATE NORMAL
[2017-07-31] VITALS: BP 115/49
[2017-07-31 04:00] VITALS: BP 133/70
[2017-07-31] MEDS: ONDANSETRON HCL 4MG/2ML VIAL IV PRN ×2 (05:44→13:43)
[2017-07-31 06:31] LABS: INR 1.1; PARTIAL THROMBOPLASTIN TIME 22.7 sec (23.4-31.0); PROTHROMBIN TIME 11.8 sec (9.4-11.6)
[2017-07-31] MEDS: BLOOD SUGAR DIAGNOSTIC STRIP TEST SCH ×4 (06:40→21:46)
[2017-07-31 07:23] LABS: CARBON DIOXIDE 24 mEq/L (21-32); CHLORIDE 103 mEq/L (98-107)
[2017-07-31 07:54] VITALS: BP 145/66
[2017-07-31] MEDS: INSULIN LISPRO 100 UNITS/ML SUBCUT SCH ×4 (08:27→21:50)
[2017-07-31] MEDS: FOLIC ACID 1MG TABLET PO SCH (08:29)
[2017-07-31] MEDS: METFORMIN HCL 500MG SR TABLET 24HR PO SCH ×2 (08:29→18:07)
[2017-07-31] MEDS: OMEPRAZOLE 20MG CAPSULE EXTENDED RELEASE PO SCH (08:29)
[2017-07-31] MEDS: CARVEDILOL 12.5MG TABLET PO SCH (08:29)
[2017-07-31] MEDS: HYDROMORPHONE HCL/PF 2MG/ML CPJ IV PRN ×3 (08:29→20:30)
[2017-07-31] MEDS: DOCUSATE SODIUM 100MG CAPSULE PO SCH ×2 (08:29→18:07)
[2017-07-31] MEDS: GABAPENTIN 300MG CAPSULE PO SCH (08:29)
[2017-07-31] MEDS: CHOLECALCIFEROL (D3) 1000 UNIT TABLET PO SCH (08:29)
[2017-07-31 09:07] LABS: BASOPHILS % 0.8 % (0.0-2.0); EOSINOPHILS % 0.5 % (0.0-5.0); HEMATOCRIT. 29.9 % (36.0-48.0); HEMOGLOBIN. 9.4 g/dL (12.0-16.0); LYMPHOCYTES % 48.3 % (20.0-50.0); MEAN CORPUSCULAR HEMOGLOBIN 25.5 pg (28.0-32.0); MEAN CORPUSCULAR VOLUME 81.2 fL (81.0-99.0); MONOCYTES % 8.1 % (2.0-8.0); NEUTROPHILS % 42.3 % (40.0-76.0); RED BLOOD CELL COUNT 3.68 mill/uL (4.2-5.4); RED CELL DISTRIBUTION WIDTH 22.5 % (11.6-14.6)
[2017-07-31] MEDS: MAGNESIUM/ALUMINUM HYDROXIDE/SIMETHICONE 30ML UDC PO PRN (10:36)
[2017-07-31] MEDS: LEVOFLOXACIN 500MG PREMIX 100 ML IV SCH (10:36)
[2017-07-31] MEDS: SODIUM CHL 0.9% + KCL 20MEQ/L 1,000 ML IV SCH ×2 (10:36)
[2017-07-31 12:00] VITALS: BP 122/55
[2017-07-31 13:03] LABS: PLATELET 248 x1000/uL (130-400)
[2017-07-31 16:00] VITALS: BP 140/66
[2017-07-31 20:00] VITALS: BP 114/75
[2017-07-31] MEDS: TRAZODONE HCL 100MG TABLET PO SCH (21:05)
[2017-08-01] VITALS (7 sets, daily range): BP systolic 110–168; BP diastolic 59–85
[2017-08-01 06:42] LABS: INR 1.1; PROTHROMBIN TIME 11.7 sec (9.4-11.6)
[2017-08-01] MEDS: HYDROMORPHONE HCL/PF 2MG/ML CPJ IV PRN ×4 (06:42→20:01)
[2017-08-01] MEDS: BLOOD SUGAR DIAGNOSTIC STRIP TEST SCH ×4 (06:54→21:50)
[2017-08-01] MEDS: ONDANSETRON HCL 4MG/2ML VIAL IV PRN ×3 (06:57→20:14)
[2017-08-01] MEDS: METFORMIN HCL 500MG SR TABLET 24HR PO SCH ×2 (07:50→18:19)
[2017-08-01] MEDS: INSULIN LISPRO 100 UNITS/ML SUBCUT SCH ×4 (07:50→22:33)
[2017-08-01] MEDS: GABAPENTIN 300MG CAPSULE PO SCH (09:00)
[2017-08-01] MEDS: CARVEDILOL 12.5MG TABLET PO SCH (09:00)
[2017-08-01] MEDS: CHOLECALCIFEROL (D3) 1000 UNIT TABLET PO SCH (09:00)
[2017-08-01] MEDS: FOLIC ACID 1MG TABLET PO SCH (09:00)
[2017-08-01] MEDS: DOCUSATE SODIUM 100MG CAPSULE PO SCH ×2 (09:00→18:19)
[2017-08-01] MEDS: OMEPRAZOLE 20MG CAPSULE EXTENDED RELEASE PO SCH (09:00)
[2017-08-01] MEDS ORDERED: SODIUM CHLORIDE 0.9% 1,000 ML IV SCH (12:15)
[2017-08-01] MEDS: LEVOFLOXACIN 500MG PREMIX 100 ML IV SCH (12:18)
[2017-08-01] MEDS ORDERED: SODIUM CHL 0.9% + KCL 20MEQ/L 1,000 ML IV SCH ×3 (14:00)
[2017-08-01] MEDS: TRAZODONE HCL 100MG TABLET PO SCH (21:26)
[2017-08-02] VITALS: BP 150/81
[2017-08-02] MEDS ORDERED: SODIUM CHLORIDE 0.9% 1,000 ML IV SCH
[2017-08-02 04:00] VITALS: BP 153/66
[2017-08-02 06:23] LABS: HEMATOCRIT. 30.5 % (36.0-48.0); HEMOGLOBIN. 9.6 g/dL (12.0-16.0); MEAN CORPUSCULAR HEMOGLOBIN 25.4 pg (28.0-32.0); MEAN CORPUSCULAR VOLUME 80.6 fL (81.0-99.0); MEAN PLATELET VOLUME 9.1 fl (7.4-10.4); PLATELET 236 x1000/uL (130-400); RED BLOOD CELL COUNT 3.78 mill/uL (4.2-5.4)
[2017-08-02] MEDS: BLOOD SUGAR DIAGNOSTIC STRIP TEST SCH ×4 (06:35→21:30)
[2017-08-02] MEDS: SODIUM CHL 0.9% + KCL 20MEQ/L 1,000 ML IV SCH ×2 (06:51→13:20)
[2017-08-02 07:04] LABS: CHLORIDE 103 mEq/L (98-107)
[2017-08-02 07:27] LABS: CARBON DIOXIDE 24 mEq/L (21-32)
[2017-08-02] MEDS ORDERED: HYDROMORPHONE HCL/PF 2MG/ML CPJ IV PRN (07:45)
[2017-08-02] MEDS: INSULIN LISPRO 100 UNITS/ML SUBCUT SCH ×5 (07:50→21:30)
[2017-08-02] MEDS: METFORMIN HCL 500MG SR TABLET 24HR PO SCH ×2 (07:50→17:48)
[2017-08-02 08:00] VITALS: BP 172/91
[2017-08-02] MEDS: GABAPENTIN 300MG CAPSULE PO SCH (09:00)
[2017-08-02] MEDS: CHOLECALCIFEROL (D3) 1000 UNIT TABLET PO SCH (09:00)
[2017-08-02] MEDS: FOLIC ACID 1MG TABLET PO SCH (09:00)
[2017-08-02] MEDS: CARVEDILOL 12.5MG TABLET PO SCH ×2 (09:00→10:23)
[2017-08-02] MEDS: OMEPRAZOLE 20MG CAPSULE EXTENDED RELEASE PO SCH (09:00)
[2017-08-02] MEDS: DOCUSATE SODIUM 100MG CAPSULE PO SCH ×2 (09:00→17:00)
[2017-08-02] MEDS ORDERED: DIPHENHYDRAMINE 50MG/ML VIAL IV NR (10:00)
[2017-08-02] MEDS: ONDANSETRON HCL 4MG/2ML VIAL IV PRN ×2 (10:22→20:22)
[2017-08-02] MEDS: LEVOFLOXACIN 500MG PREMIX 100 ML IV SCH (11:16)
[2017-08-02 12:00] VITALS: BP 155/77
[2017-08-02] MEDS: MORPHINE SULFATE 2 MG/ML CPJ (NOT FOR IM USE) IV PRN ×2 (12:28→20:23)
[2017-08-02 13:22] LABS: NUCLEATED RED BLOOD CELLS 3 /100 WBC
[2017-08-02 13:25] LABS: PLATELET ESTIMATE NORMAL
[2017-08-02 16:00] VITALS: BP 124/58
[2017-08-02 20:00] VITALS: BP 167/83
[2017-08-02] MEDS: DIPHENHYDRAMINE 25MG CAPSULE PO PRN (20:26)
[2017-08-02] MEDS: TRAZODONE HCL 100MG TABLET PO SCH (20:26)
[2017-08-03] VITALS: BP 107/56
[2017-08-03] MEDS: SODIUM CHL 0.9% + KCL 20MEQ/L 1,000 ML IV SCH (01:44)
[2017-08-03 04:00] VITALS: BP 106/64
[2017-08-03] MEDS: BLOOD SUGAR DIAGNOSTIC STRIP TEST SCH ×2 (06:38→12:02)
[2017-08-03 08:00] VITALS: BP 148/76
[2017-08-03] MEDS: ONDANSETRON HCL 4MG/2ML VIAL IV PRN (08:14)
[2017-08-03] MEDS: CHOLECALCIFEROL (D3) 1000 UNIT TABLET PO SCH (08:16)
[2017-08-03] MEDS: OMEPRAZOLE 20MG CAPSULE EXTENDED RELEASE PO SCH (08:16)
[2017-08-03] MEDS: METFORMIN HCL 500MG SR TABLET 24HR PO SCH (08:17)
[2017-08-03] MEDS: GABAPENTIN 300MG CAPSULE PO SCH (08:17)
[2017-08-03] MEDS: CARVEDILOL 12.5MG TABLET PO SCH (08:17)
[2017-08-03] MEDS: FOLIC ACID 1MG TABLET PO SCH (08:17)
[2017-08-03] MEDS: DOCUSATE SODIUM 100MG CAPSULE PO SCH (08:17)
[2017-08-03] MEDS: INSULIN LISPRO 100 UNITS/ML SUBCUT SCH ×2 (08:21→12:25)
[2017-08-03] MEDS: DIPHENHYDRAMINE 25MG CAPSULE PO PRN (08:59)
[2017-08-03] MEDS ORDERED: MORPHINE SULFATE 2 MG/ML CPJ (NOT FOR IM USE) IV PRN (10:00)
[2017-08-03] MEDS: LEVOFLOXACIN 500MG PREMIX 100 ML IV SCH (11:10)
[2017-08-03 12:00] VITALS: BP 135/71
[2017-08-03 13:09] LABS: ALPHA FETOPROTEIN TUMOR MARKER 5.5 ng/mL (0.0-8.3)
[2017-08-11] MEDS ORDERED: CYANOCOBALAMIN IM SCH (09:00)
== END 2017-08-03 16:50 | disposition short-term general hospital (02) | DRG 435 ==
LOC: ER 17:47 → 6WST 20:53 → ENRESERV 21:11
PROVIDERS: ADMIT Internal Medicine; ATTEND Internal Medicine
DX: C78.7 Secondary malignant neoplasm of liver and intrahepatic bile duct (principal); K83.1 Obstruction of bile duct; C25.9 Malignant neoplasm of pancreas, unspecified; E11.42 Type 2 diabetes mellitus with diabetic polyneuropathy; D64.9 Anemia, unspecified; N28.1 Cyst of kidney, acquired; E78.5 Hyperlipidemia, unspecified; I10 Essential (primary) hypertension; G43.909 Migraine, unspecified, not intractable, without status migrainosus; E78.00 Pure hypercholesterolemia, unspecified; Z79.4 Long term (current) use of insulin; Z82.49 Family history of ischemic heart disease and other diseases of the circulatory system; Z83.3 Family history of diabetes mellitus; Z90.411 Acquired partial absence of pancreas; Z90.81 Acquired absence of spleen; Z88.0 Allergy status to penicillin; Z88.8 Allergy status to other drugs, medicaments and biological substances
CPT/HCPCS: 36415; 71010; 74176; 74181; 80048; 80053; 80076; 81001; 82105; 82150; 82248; 82378; 82607; 82728; 82746; 82962; 83540; 83550; 83690; 84466; 84484; 85007; 85025; 85027; 85044; 85610; 85730; 86301; 93005; 96361; 96374; 96375; 99285; J1170; J1200; J1815; J1956; J2270; J2405; J3420; J3480; J7030; Q0163

== ENCOUNTER 2017-10-27 12:49 | Emergency (ER) | payer MEDICARE, BC ==
[~2017-10-27] VITALS: Ht 162.6 cm; Wt 72.0 kg
[~2017-10-27 12:49] MED LIST changes: +CHOL100044 PO; +FOLI-43 PO; +METF-517 PO; +TRAZ-132 PO
[2017-10-27] MEDS ORDERED: HYDROCODONE/ACETAMINOPHEN 10/325MG TABLET PO ONE (14:30)
[2017-10-27 14:36] LABS: HEMATOCRIT. 31.4 % (36.0-48.0); HEMOGLOBIN. 9.8 g/dL (12.0-16.0); MEAN CORPUSCULAR HEMOGLOBIN 25.8 pg (28.0-32.0); MEAN CORPUSCULAR VOLUME 82.8 fL (81.0-99.0); MEAN PLATELET VOLUME 8.5 fl (7.4-10.4); PLATELET 212 x1000/uL (130-400); RED BLOOD CELL COUNT 3.79 mill/uL (4.2-5.4); RED CELL DISTRIBUTION WIDTH 21.7 % (11.6-14.6)
[2017-10-27 14:55] LABS: CARBON DIOXIDE 27 mEq/L (21-32); CHLORIDE 101 mEq/L (98-107)
[2017-10-27 16:03] VITALS: BP 118/65
[2017-10-27 16:32] LABS: PLATELET ESTIMATE NORMAL
== END 2017-10-27 16:17 | disposition home or self-care (01) ==
LOC: ER 13:03
DX: T40.2X5A Adverse effect of other opioids, initial encounter (principal); E11.9 Type 2 diabetes mellitus without complications; Z88.0 Allergy status to penicillin; Z79.82 Long term (current) use of aspirin; Z79.4 Long term (current) use of insulin; Z88.8 Allergy status to other drugs, medicaments and biological substances; Y92.89 Other specified places as the place of occurrence of the external cause
CPT/HCPCS: 36415; 70450; 80053; 85025; 99285

== ENCOUNTER 2017-11-27 21:44 | Emergency (ER) | payer MEDICARE, BC ==
[~2017-11-27] VITALS: Ht 162.6 cm; Wt 63.0 kg
[2017-11-27] MEDS ORDERED: SODIUM CHLORIDE 0.9% 500 ML IV ONE (22:21)
[2017-11-27] MEDS ORDERED: ONDANSETRON HCL 4MG/2ML VIAL IV ONE (22:45)
[2017-11-27] MEDS ORDERED: MORPHINE SULFATE 4 MG/ML CPJ (NOT FOR IM USE) IV ONE (22:45)
[2017-11-27 23:32] LABS: HEMATOCRIT. 27.4 % (36.0-48.0); HEMOGLOBIN. 8.7 g/dL (12.0-16.0); MEAN CORPUSCULAR HEMOGLOBIN 26.3 pg (28.0-32.0); MEAN CORPUSCULAR VOLUME 83.1 fL (81.0-99.0); MEAN PLATELET VOLUME 8.6 fl (7.4-10.4); PLATELET 265 x1000/uL (130-400); RED BLOOD CELL COUNT 3.29 mill/uL (4.2-5.4); RED CELL DISTRIBUTION WIDTH 18.6 % (11.6-14.6)
[2017-11-27 23:47] LABS: CARBON DIOXIDE 26 mEq/L (21-32); CHLORIDE 97 mEq/L (98-107)
[2017-11-27 23:55] LABS: INR 1.4; PARTIAL THROMBOPLASTIN TIME 30.1 sec (23.4-31.0); PROTHROMBIN TIME 14.2 sec (9.4-11.6)
[2017-11-28] MEDS ORDERED: IOHEXOL-300 100 ML BOTTLE ONE (02:32)
[2017-11-28 04:13] LABS: CLARITY URINE CLEAR (CLEAR); COLOR URINE YELLOW (YELLOW); KETONES URINE TRACE (NEGATIVE); LEUKOCYTE ESTERASE URINE 1+ (NEGATIVE); NITRITE URINE POSITIVE (NEGATIVE); OCCULT BLOOD URINE TRACE (NEGATIVE); PH URINE 6.5 (4.5-8.0); PROTEIN URINE NEGATIVE (NEGATIVE); SPECIFIC GRAVITY URINE 1.024 (1.005-1.030); UROBILINOGEN URINE 0.2 E.U./dL (0.2-1.0)
[2017-11-28] MEDS ORDERED: CEFTRIAXONE 1 G PREMIX 50 ML IV ONE (04:45)
[2017-11-28] MEDS ORDERED: ACETAMINOPHEN 650MG/20.3ML UDC PO ONE (04:45)
[2017-11-28 05:02] LABS: PLATELET ESTIMATE NORMAL
[2017-11-28 07:00] VITALS: BP 123/55
== END 2017-11-28 07:18 | disposition home or self-care (01) ==
LOC: ER 21:56
DX: N39.0 Urinary tract infection, site not specified (principal); C25.9 Malignant neoplasm of pancreas, unspecified; C79.89 Secondary malignant neoplasm of other specified sites; E87.6 Hypokalemia; E87.1 Hypo-osmolality and hyponatremia; D63.0 Anemia in neoplastic disease; E78.00 Pure hypercholesterolemia, unspecified; M19.90 Unspecified osteoarthritis, unspecified site; E11.65 Type 2 diabetes mellitus with hyperglycemia; Z79.4 Long term (current) use of insulin; I10 Essential (primary) hypertension; Z88.6 Allergy status to analgesic agent; Z88.5 Allergy status to narcotic agent; Z88.0 Allergy status to penicillin; Z92.21 Personal history of antineoplastic chemotherapy
CPT/HCPCS: 36415; 71045; 74177; 80053; 81001; 83690; 85025; 85610; 85730; 86850; 86900; 86901; 87077; 87086; 87186; 96361; 96365; 96375; 99285; J0696; J2405; J7040; Q9967; J2270; J7030

== ENCOUNTER 2018-01-07 08:09 | Inpatient (IN) | payer MEDICARE, BC ==
[~2018-01-07] VITALS: Ht 167.6 cm; Wt 71.2 kg
[~2018-01-07 08:09] MED LIST changes: -ONDA4FIL4; +ONDA4FIL5; +TRAM200T36; -TRAZ-132 PO; +TRAZ-213 PO; -[UNRECOGNIZED DRUG - CODE]
[2018-01-07] MEDS ORDERED: SODIUM CHLORIDE 0.9% 1,000 ML IV ONE ×2 (09:06→12:15)
[2018-01-07 09:25] LABS: HEMATOCRIT. 32.2 % (36.0-48.0); MEAN CORPUSCULAR HEMOGLOBIN 25.1 pg (28.0-32.0); MEAN CORPUSCULAR VOLUME 80.7 fL (81.0-99.0); PLATELET 187 x1000/uL (130-400); RED BLOOD CELL COUNT 3.99 mill/uL (4.2-5.4); RED CELL DISTRIBUTION WIDTH 19.1 % (11.6-14.6)
[2018-01-07 09:33] LABS: INR 1.5; PROTHROMBIN TIME 15.6 sec (9.4-11.6)
[2018-01-07 09:38] LABS: CHLORIDE 98 mEq/L (98-107)
[2018-01-07 09:41] LABS: CREATINE KINASE 105 IU/L (26-192)
[2018-01-07 10:01] LABS: PLATELET ESTIMATE NORMAL
[2018-01-07] MEDS ORDERED: LEVOFLOXACIN 750MG PREMIX 150 ML IV ONE (11:00)
[2018-01-07 12:20] LABS: KETONES URINE 1+ (NEGATIVE); LEUKOCYTE ESTERASE URINE NEGATIVE (NEGATIVE); NITRITE URINE NEGATIVE (NEGATIVE); OCCULT BLOOD URINE NEGATIVE (NEGATIVE); PH URINE 6.5 (4.5-8.0); PROTEIN URINE NEGATIVE (NEGATIVE); SPECIFIC GRAVITY URINE 1.035 (1.005-1.030)
[2018-01-07 12:23] LABS: CLARITY URINE CLEAR (CLEAR); COLOR URINE YELLOW (YELLOW)
[2018-01-07 15:16] LABS: T4 FREE 1.41 ng/dL (0.76-1.46)
[2018-01-07 15:29] LABS: VITAMIN B12 SERUM >2000 pg/mL pg/mL (211-911)
[2018-01-07 16:00] VITALS: BP 141/88
[2018-01-07 17:15] LABS: *AMPHETAMINES SCREEN URINE NEGATIVE (NEGATIVE); *BARBITURATES SCREEN URINE NEGATIVE (NEGATIVE); *BENZODIAZEPINES SCREEN URINE NEGATIVE (NEGATIVE); *COCAINE SCREEN URINE NEGATIVE (NEGATIVE); CANNABINOID URINE SCREEN NEGATIVE (NEGATIVE); METHADONE URINE SCREEN NEGATIVE (NEGATIVE); OPIATES URINE SCREEN PRESUMTIVE POSITIVE (NEGATIVE); PHENCYCLIDINE URINE SCREEN NEGATIVE (NEGATIVE)
[2018-01-07 18:00] VITALS: BP 149/86
[2018-01-07 20:00] VITALS: BP 145/71
[2018-01-07] MEDS: MORPHINE SULFATE 4 MG/ML CPJ (NOT FOR IM USE) IV PRN (21:59)
[2018-01-07 22:00] VITALS: BP 139/76
[2018-01-08] VITALS (9 sets, daily range): BP systolic 100–160; BP diastolic 51–90
[2018-01-08] MEDS: MORPHINE SULFATE 4 MG/ML CPJ (NOT FOR IM USE) IV PRN ×2 (03:40→08:53)
[2018-01-08 06:30] LABS: HEMATOCRIT. 31.1 % (36.0-48.0); HEMOGLOBIN. 9.8 g/dL (12.0-16.0); MEAN CORPUSCULAR HEMOGLOBIN 25.4 pg (28.0-32.0); MEAN CORPUSCULAR VOLUME 80.6 fL (81.0-99.0); RED BLOOD CELL COUNT 3.86 mill/uL (4.2-5.4); RED CELL DISTRIBUTION WIDTH 19.3 % (11.6-14.6)
[2018-01-08 07:04] LABS: CHLORIDE 100 mEq/L (98-107)
[2018-01-08] MEDS ORDERED: MORPHINE SULFATE 2 MG/ML CPJ (NOT FOR IM USE) IV PRN (09:00)
[2018-01-08 09:38] LABS: NUCLEATED RED BLOOD CELLS 1 /100 WBC; PLATELET ESTIMATE NORMAL
[2018-01-08] MEDS ORDERED: IPRATROPIUM/ALBUTEROL 0.5-3(2.5)MG/3ML NEB HHN PRN (10:45)
[2018-01-08] MEDS ORDERED: DEXTROSE 50% WATER 50ML SYRINGE IV PRN (10:45)
[2018-01-08] MEDS ORDERED: HYDRALAZINE 20MG/ML VIAL IV PRN (11:00)
[2018-01-08] MEDS ORDERED: DEXT 5%/0.45% NACL 1000ML 1,000 ML IV SCH (11:00)
[2018-01-08] MEDS ORDERED: MORPHINE SULFATE 4 MG/ML CPJ (NOT FOR IM USE) IV PRN (12:15)
[2018-01-08] MEDS: INSULIN LISPRO 100 UNITS/ML SUBCUT SCH ×3 (12:48→20:42)
[2018-01-08] MEDS: BLOOD SUGAR DIAGNOSTIC STRIP TEST SCH ×3 (12:51→20:37)
[2018-01-08] MEDS: DEXT 5%/0.45% NACL KCL 10MEQ/L 1,000 ML IV SCH ×2 (12:52→22:40)
[2018-01-08] MEDS ORDERED: DOCUSATE SODIUM 100MG CAPSULE PO PRN (13:30)
[2018-01-08] MEDS ORDERED: IPRATROPIUM/ALBUTEROL 0.5-3(2.5)MG/3ML NEB INH PRN (13:30)
[2018-01-08] MEDS ORDERED: LEVOFLOXACIN 750MG PREMIX 150 ML IV SCH (14:00)
[2018-01-08 14:30] LABS: MEAN PLATELET VOLUME 9.3 fl (7.4-10.4); PLATELET 188 x1000/uL (130-400)
[2018-01-08] MEDS: HYDROMORPHONE HCL/PF 2MG/ML CPJ IV PRN ×2 (14:50→20:50)
[2018-01-08] MEDS: MEROPENEM 1,000 MG in SODIUM CHLORIDE 0.9% 50 ML IV SCH (16:55)
[2018-01-08] MEDS: HYDROCODONE/APAP 7.5/325MG 1 TAB TABLET PO PRN (16:55)
[2018-01-08] MEDS: ONDANSETRON HCL 4MG/2ML INJ IV PRN (18:47)
[2018-01-08] MEDS ORDERED: ZOLPIDEM TARTRATE 5MG TABLET PO PRN (21:00)
[2018-01-08] MEDS: INSULIN GLARGINE UD 100 UNITS/ML SYR SUBCUT SCH (22:40)
[2018-01-09] VITALS (12 sets, daily range): BP systolic 93–159; BP diastolic 58–99
[2018-01-09] MEDS: HYDROMORPHONE HCL/PF 2MG/ML CPJ IV PRN ×4 (00:45→15:54)
[2018-01-09] MEDS: MEROPENEM 1,000 MG in SODIUM CHLORIDE 0.9% 50 ML IV SCH ×3 (01:01→15:51)
[2018-01-09] MEDS ORDERED: MAGNESIUM 2 G PREMIX 50 ML IV NR (02:15)
[2018-01-09] MEDS: ONDANSETRON HCL 4MG/2ML INJ IV PRN (05:33)
[2018-01-09 07:18] LABS: HEMATOCRIT. 31.4 % (36.0-48.0); HEMOGLOBIN. 9.9 g/dL (12.0-16.0); MEAN CORPUSCULAR HEMOGLOBIN 25.1 pg (28.0-32.0); MEAN CORPUSCULAR VOLUME 79.2 fL (81.0-99.0); MEAN PLATELET VOLUME 9.3 fl (7.4-10.4); PLATELET 176 x1000/uL (130-400); RED BLOOD CELL COUNT 3.97 mill/uL (4.2-5.4); RED CELL DISTRIBUTION WIDTH 18.9 % (11.6-14.6)
[2018-01-09 07:28] LABS: AMYLASE 18 IU/L (25-115); CHLORIDE 100 mEq/L (98-107)
[2018-01-09] MEDS: BLOOD SUGAR DIAGNOSTIC STRIP TEST SCH ×4 (07:55→20:47)
[2018-01-09] MEDS: OMEPRAZOLE 20MG CAPSULE EXTENDED RELEASE PO SCH (08:30)
[2018-01-09] MEDS: INSULIN LISPRO 100 UNITS/ML SUBCUT SCH ×4 (08:31→21:32)
[2018-01-09] MEDS ORDERED: POTASSIUM CHLORIDE 20MEQ/PACKET PO NR (11:30)
[2018-01-09] MEDS: DEXT 5%/0.45% NACL KCL 10MEQ/L 1,000 ML IV SCH (13:27)
[2018-01-09 15:16] LABS: PLATELET ESTIMATE NORMAL
[2018-01-09] MEDS: INSULIN GLARGINE UD 100 UNITS/ML SYR SUBCUT SCH (21:31)
[2018-01-10] VITALS (12 sets, daily range): BP systolic 103–146; BP diastolic 52–76
[2018-01-10] MEDS: MEROPENEM 1,000 MG in SODIUM CHLORIDE 0.9% 50 ML IV SCH ×3 (00:51→15:56)
[2018-01-10] MEDS: HYDROMORPHONE HCL/PF 2MG/ML CPJ IV PRN ×6 (00:51→19:58)
[2018-01-10] MEDS: DEXT 5%/0.45% NACL KCL 10MEQ/L 1,000 ML IV SCH ×2 (03:34→15:56)
[2018-01-10 06:53] LABS: HEMATOCRIT. 29.9 % (36.0-48.0); HEMOGLOBIN. 9.4 g/dL (12.0-16.0); MEAN CORPUSCULAR HEMOGLOBIN 24.7 pg (28.0-32.0); MEAN PLATELET VOLUME 9.4 fl (7.4-10.4); PLATELET 137 x1000/uL (130-400); RED BLOOD CELL COUNT 3.78 mill/uL (4.2-5.4); RED CELL DISTRIBUTION WIDTH 19.4 % (11.6-14.6)
[2018-01-10 07:31] LABS: CHLORIDE 102 mEq/L (98-107)
[2018-01-10] MEDS: BLOOD SUGAR DIAGNOSTIC STRIP TEST SCH ×4 (08:10→21:12)
[2018-01-10] MEDS: OMEPRAZOLE 20MG CAPSULE EXTENDED RELEASE PO SCH (08:12)
[2018-01-10] MEDS: INSULIN LISPRO 100 UNITS/ML SUBCUT SCH ×4 (08:48→21:16)
[2018-01-10] MEDS ORDERED: MAGNESIUM 2 G PREMIX 50 ML IV ONE (10:30)
[2018-01-10] MEDS ORDERED: POTASSIUM CHLORIDE 20MEQ/PACKET PO SCH (13:00)
[2018-01-10] MEDS: HYDROCODONE/APAP 7.5/325MG 1 TAB TABLET PO PRN (17:58)
[2018-01-10] MEDS: ACETAMINOPHEN 325MG TABLET PO PRN (18:30)
[2018-01-10 20:26] LABS: PLATELET ESTIMATE NORMAL
[2018-01-10] MEDS: INSULIN GLARGINE UD 100 UNITS/ML SYR SUBCUT SCH (21:26)
[2018-01-11] VITALS (11 sets, daily range): BP systolic 103–134; BP diastolic 53–117
[2018-01-11] MEDS: MEROPENEM 1,000 MG in SODIUM CHLORIDE 0.9% 50 ML IV SCH ×2 (00:24→08:50)
[2018-01-11] MEDS: HYDROMORPHONE HCL/PF 2MG/ML CPJ IV PRN ×7 (00:34→17:08)
[2018-01-11] MEDS: ONDANSETRON HCL 4MG/2ML INJ IV PRN (00:49)
[2018-01-11] MEDS: DEXT 5%/0.45% NACL KCL 10MEQ/L 1,000 ML IV SCH (05:06)
[2018-01-11 06:07] LABS: HEMATOCRIT. 27.2 % (36.0-48.0); HEMOGLOBIN. 8.5 g/dL (12.0-16.0); MEAN CORPUSCULAR HEMOGLOBIN 24.7 pg (28.0-32.0); MEAN CORPUSCULAR VOLUME 78.6 fL (81.0-99.0); MEAN PLATELET VOLUME 10.1 fl (7.4-10.4); PLATELET 115 x1000/uL (130-400); RED BLOOD CELL COUNT 3.46 mill/uL (4.2-5.4); RED CELL DISTRIBUTION WIDTH 19.3 % (11.6-14.6)
[2018-01-11] MEDS: OMEPRAZOLE 20MG CAPSULE EXTENDED RELEASE PO SCH (06:25)
[2018-01-11 06:44] LABS: CHLORIDE 100 mEq/L (98-107)
[2018-01-11] MEDS: BLOOD SUGAR DIAGNOSTIC STRIP TEST SCH ×4 (08:17→21:00)
[2018-01-11] MEDS: INSULIN LISPRO 100 UNITS/ML SUBCUT SCH ×4 (08:52→21:00)
[2018-01-11] MEDS ORDERED: LACTULOSE 20G/30ML UDC PO NR (11:30)
[2018-01-11] MEDS: DOCUSATE SODIUM 100MG CAPSULE PO SCH ×2 (12:02→17:08)
[2018-01-11 13:23] LABS: PLATELET ESTIMATE SLIGHTLY DECREASED
[2018-01-11] MEDS: METRONIDAZOLE 500 MG PREMIX 100 ML IV SCH (16:00)
[2018-01-11] MEDS: CEFTRIAXONE 1 G PREMIX 50 ML IV SCH (16:01)
[2018-01-11] MEDS: INSULIN GLARGINE UD 100 UNITS/ML SYR SUBCUT SCH (22:00)
[2018-01-12] VITALS (7 sets, daily range): BP systolic 105–125; BP diastolic 59–81
[2018-01-12] MEDS: HYDROMORPHONE HCL/PF 2MG/ML CPJ IV PRN ×3 (00:49→06:59)
[2018-01-12] MEDS: METRONIDAZOLE 500 MG PREMIX 100 ML IV SCH ×2 (03:44→17:17)
[2018-01-12] MEDS: OMEPRAZOLE 20MG CAPSULE EXTENDED RELEASE PO SCH (06:19)
[2018-01-12 07:21] LABS: HEMATOCRIT. 26.6 % (36.0-48.0); HEMOGLOBIN. 8.5 g/dL (12.0-16.0); MEAN CORPUSCULAR HEMOGLOBIN 24.6 pg (28.0-32.0); MEAN CORPUSCULAR VOLUME 77.4 fL (81.0-99.0); MEAN PLATELET VOLUME 10.1 fl (7.4-10.4); PLATELET 123 x1000/uL (130-400); RED BLOOD CELL COUNT 3.44 mill/uL (4.2-5.4)
[2018-01-12 07:48] LABS: CHLORIDE 100 mEq/L (98-107)
[2018-01-12] MEDS: BLOOD SUGAR DIAGNOSTIC STRIP TEST SCH ×4 (08:12→21:20)
[2018-01-12] MEDS: HYDROCODONE/APAP 7.5/325MG 1 TAB TABLET PO PRN (08:30)
[2018-01-12] MEDS: DOCUSATE SODIUM 100MG CAPSULE PO SCH ×2 (08:30→17:00)
[2018-01-12] MEDS: INSULIN LISPRO 100 UNITS/ML SUBCUT SCH ×4 (08:31→21:20)
[2018-01-12] MEDS: MORPHINE SULFATE 4 MG/ML CPJ (NOT FOR IM USE) IV PRN ×6 (10:03→22:51)
[2018-01-12 13:49] LABS: PLATELET ESTIMATE SLIGHTLY DECREASED
[2018-01-12] MEDS ORDERED: MAGNESIUM 2 G PREMIX 50 ML IV NR (14:00)
[2018-01-12] MEDS: CEFTRIAXONE 1 G PREMIX 50 ML IV SCH (17:17)
[2018-01-12] MEDS: INSULIN GLARGINE UD 100 UNITS/ML SYR SUBCUT SCH (21:21)
[2018-01-13] VITALS (11 sets, daily range): BP systolic 117–140; BP diastolic 61–86
[2018-01-13] MEDS: MORPHINE SULFATE 4 MG/ML CPJ (NOT FOR IM USE) IV PRN ×10 (00:43→23:03)
[2018-01-13] MEDS: METRONIDAZOLE 500 MG PREMIX 100 ML IV SCH ×2 (02:48→15:15)
[2018-01-13] MEDS: OMEPRAZOLE 20MG CAPSULE EXTENDED RELEASE PO SCH (09:41)
[2018-01-13] MEDS: DOCUSATE SODIUM 100MG CAPSULE PO SCH ×2 (09:41→18:26)
[2018-01-13] MEDS: ONDANSETRON HCL 4MG/2ML INJ IV PRN (09:46)
[2018-01-13] MEDS: HYDROCODONE/APAP 7.5/325MG 1 TAB TABLET PO PRN (12:27)
[2018-01-13] MEDS: BLOOD SUGAR DIAGNOSTIC STRIP TEST SCH ×3 (12:30→21:09)
[2018-01-13] MEDS: INSULIN LISPRO 100 UNITS/ML SUBCUT SCH ×3 (13:21→21:07)
[2018-01-13] MEDS: CEFTRIAXONE 1 G PREMIX 50 ML IV SCH (15:16)
[2018-01-13] MEDS: INSULIN GLARGINE UD 100 UNITS/ML SYR SUBCUT SCH (21:08)
[2018-01-14] VITALS (7 sets, daily range): BP systolic 113–135; BP diastolic 65–78
[2018-01-14] MEDS: MORPHINE SULFATE 4 MG/ML CPJ (NOT FOR IM USE) IV PRN ×8 (01:07→23:57)
[2018-01-14] MEDS: METRONIDAZOLE 500 MG PREMIX 100 ML IV SCH ×2 (03:54→14:15)
[2018-01-14 07:16] LABS: HEMATOCRIT. 24.6 % (36.0-48.0); MEAN CORPUSCULAR VOLUME 76.7 fL (81.0-99.0); MEAN PLATELET VOLUME 10.2 fl (7.4-10.4); PLATELET 164 x1000/uL (130-400); RED BLOOD CELL COUNT 3.21 mill/uL (4.2-5.4); RED CELL DISTRIBUTION WIDTH 19.2 % (11.6-14.6)
[2018-01-14 07:47] LABS: CHLORIDE 103 mEq/L (98-107)
[2018-01-14] MEDS: INSULIN LISPRO 100 UNITS/ML SUBCUT SCH ×4 (08:00→20:34)
[2018-01-14] MEDS: BLOOD SUGAR DIAGNOSTIC STRIP TEST SCH ×4 (08:18→20:34)
[2018-01-14] MEDS: DOCUSATE SODIUM 100MG CAPSULE PO SCH ×2 (08:27→16:21)
[2018-01-14] MEDS: OMEPRAZOLE 20MG CAPSULE EXTENDED RELEASE PO SCH (08:27)
[2018-01-14] MEDS ORDERED: POTASSIUM CHLORIDE 20MEQ TABLET SR PO SCH (11:15)
[2018-01-14] MEDS: HYDROCODONE/APAP 7.5/325MG 1 TAB TABLET PO PRN ×3 (11:48→21:59)
[2018-01-14 13:40] LABS: PLATELET ESTIMATE NORMAL
[2018-01-14 15:11] LABS: 7-AMINOCLONAZEPAM CONFIRM Negative (.); ALPRAZOLAM CONFIRM Negative (.); CHLORDIAZEPOXIDE CONFIRM Negative (.); CLONAZEPAM CONFIRM Negative (.); DESMETHYLCHLORDIAZEPOXIDE Negative (.); DIAZEPAM CONFIRM Negative (.); FLURAZEPAM CONFIRM Negative (.); LORAZEPAM CONFIRM Negative (.); MIDAZOLAM CONFIRM Negative (.); OXAZEPAM CONFIRM Negative (.); TEMAZEPAM CONFIRM Negative (.); TRIAZOLAM CONFIRM Negative (.)
[2018-01-14] MEDS: ONDANSETRON HCL 4MG/2ML INJ IV PRN (15:26)
[2018-01-14] MEDS: CEFTRIAXONE 1 G PREMIX 50 ML IV SCH (16:28)
[2018-01-14] MEDS: INSULIN GLARGINE UD 100 UNITS/ML SYR SUBCUT SCH (21:54)
[2018-01-15] VITALS (7 sets, daily range): BP systolic 117–145; BP diastolic 59–79
[2018-01-15] MEDS: METRONIDAZOLE 500 MG PREMIX 100 ML IV SCH ×2 (03:24→16:06)
[2018-01-15] MEDS: HYDROCODONE/APAP 7.5/325MG 1 TAB TABLET PO PRN ×3 (03:25→20:09)
[2018-01-15] MEDS: MORPHINE SULFATE 4 MG/ML CPJ (NOT FOR IM USE) IV PRN ×6 (05:16→21:22)
[2018-01-15] MEDS: OMEPRAZOLE 20MG CAPSULE EXTENDED RELEASE PO SCH (08:13)
[2018-01-15] MEDS: DOCUSATE SODIUM 100MG CAPSULE PO SCH ×2 (08:13→17:00)
[2018-01-15] MEDS: BLOOD SUGAR DIAGNOSTIC STRIP TEST SCH ×4 (08:13→20:10)
[2018-01-15] MEDS: INSULIN LISPRO 100 UNITS/ML SUBCUT SCH ×4 (08:35→20:24)
[2018-01-15] MEDS: CEFTRIAXONE 1 G PREMIX 50 ML IV SCH (18:25)
[2018-01-15] MEDS: INSULIN GLARGINE UD 100 UNITS/ML SYR SUBCUT SCH (21:26)
[2018-01-16] VITALS: BP 119/63
[2018-01-16] MEDS: METRONIDAZOLE 500 MG PREMIX 100 ML IV SCH ×2 (02:39→15:01)
[2018-01-16] MEDS: ACETAMINOPHEN 325MG TABLET PO PRN (02:47)
[2018-01-16 04:00] VITALS: BP 130/70
[2018-01-16 06:28] LABS: HEMOGLOBIN. 8.6 g/dL (12.0-16.0); MEAN CORPUSCULAR HEMOGLOBIN 25.7 pg (28.0-32.0); MEAN CORPUSCULAR VOLUME 77.8 fL (81.0-99.0); MEAN PLATELET VOLUME 9.4 fl (7.4-10.4); PLATELET 250 x1000/uL (130-400); RED BLOOD CELL COUNT 3.34 mill/uL (4.2-5.4); RED CELL DISTRIBUTION WIDTH 19.9 % (11.6-14.6)
[2018-01-16 07:10] LABS: CHLORIDE 103 mEq/L (98-107)
[2018-01-16] MEDS: BLOOD SUGAR DIAGNOSTIC STRIP TEST SCH ×2 (07:30→12:30)
[2018-01-16 08:00] VITALS: BP 133/80
[2018-01-16] MEDS: INSULIN LISPRO 100 UNITS/ML SUBCUT SCH ×2 (08:00→13:00)
[2018-01-16] MEDS: OMEPRAZOLE 20MG CAPSULE EXTENDED RELEASE PO SCH (08:27)
[2018-01-16] MEDS: DOCUSATE SODIUM 100MG CAPSULE PO SCH (08:27)
[2018-01-16] MEDS: ONDANSETRON HCL 4MG/2ML INJ IV PRN (08:37)
[2018-01-16] MEDS: MORPHINE SULFATE 4 MG/ML CPJ (NOT FOR IM USE) IV PRN ×3 (10:49→15:09)
[2018-01-16] MEDS ORDERED: POTASSIUM CHLORIDE 20MEQ/PACKET PO NR (11:06)
[2018-01-16 12:00] VITALS: BP 150/89
[2018-01-16 13:59] LABS: PLATELET ESTIMATE NORMAL
[2018-01-16 14:00] VITALS: BP 135/74
[2018-01-16] MEDS ORDERED: ONDANSETRON HCL 4MG/2ML INJ IV PRN (15:30)
[2018-01-16 16:00] VITALS: BP 128/68
[2018-01-16 17:10] LABS: BARBITURATE SCREEN Negative ug/mL (Cutoff:0.1); BENZODIAZEPINE SCREEN Negative ng/mL (Cutoff:20); OPIATES SCREEN ++POSITIVE++ ng/mL (Cutoff:5); PHENCYCLIDINE SCREEN Negative ng/mL (Cutoff:8)
[2018-01-17] MEDS ORDERED: INSULIN GLARGINE UD 100 UNITS/ML SYR SUBCUT SCH (10:00)
== END 2018-01-16 16:08 | DRG 871 ==
LOC: ER 08:20 → 5EST 10:52 → EDBEDREQ 10:55 → EDBEDREQTM 10:55 → EDBEDREQSVC 10:55 → EDBEDREQTM 11:54 → ENRESERV 13:09 → 5EST 01-11 08:14
PROVIDERS: ADMIT Family Medicine Adult Medicine; ATTEND Family Medicine Adult Medicine
DX: A41.51 Sepsis due to Escherichia coli [E. coli] (principal); G92 Toxic encephalopathy; E43 Unspecified severe protein-calorie malnutrition; C78.7 Secondary malignant neoplasm of liver and intrahepatic bile duct; D68.9 Coagulation defect, unspecified; E11.40 Type 2 diabetes mellitus with diabetic neuropathy, unspecified; C25.9 Malignant neoplasm of pancreas, unspecified; D63.8 Anemia in other chronic diseases classified elsewhere; E78.00 Pure hypercholesterolemia, unspecified; E78.5 Hyperlipidemia, unspecified; I10 Essential (primary) hypertension; Z66 Do not resuscitate; I45.81 Long QT syndrome; Y92.009 Unspecified place in unspecified non-institutional (private) residence as the place of occurrence of the external cause; Z88.0 Allergy status to penicillin; Z90.710 Acquired absence of both cervix and uterus; Z90.81 Acquired absence of spleen; Z88.8 Allergy status to other drugs, medicaments and biological substances; Z68.25 Body mass index [BMI] 25.0-25.9, adult
CPT/HCPCS: 36415; 70551; 71045; 72170; 74176; 80048; 80305; 80307; 81001; 82140; 82150; 82550; 82607; 82746; 82962; 83036; 83605; 83735; 83880; 84439; 84443; 84481; 84484; 87077; 87186; 87804; 93005; 93306; 93970; 96374; 97116; 97163; 99285; J0696; J1170; J1815; J1956; J2185; J2270; J2405; J3475; J3490; J7030; J7040; J7050